=== PATIENT | female | born 1940 | race Caucasian/White ===

== ENCOUNTER 2017-11-21 08:46 | Outpatient (CLI) | payer MEDICARE | END 2017-11-21 08:47 | disposition home or self-care (01) | LOC: BICRAD 08:46 | PROVIDERS: ATTEND Family Medicine | DX: M25.532 Pain in left wrist (principal); M18.12 Unilateral primary osteoarthritis of first carpometacarpal joint, left hand ==

== ENCOUNTER 2023-09-20 07:38 | Day surgery (SDC) | payer MEDICARE ==
[2023-09-19 11:59] VITALS: BMI 39.4
[2023-09-20 09:30] LABS: #Basophils 0.09 10x3/uL (0.0-0.2); %Basophils 0.9 % (0.0-1.0); %Eosinophils 1.9 % (0.0-10.0); %Lymphocytes 18.4 % (21.0-51.0); %Monocytes 7.7 % (0.0-10.0); %Neutrophils 70.7 % (42.0-75.0); Hematocrit 35.7 % (36.0-47.0); Hemoglobin 11.1 g/dL (12.0-16.0); Mean Corpuscular HGB CONC 31.1 g/dL (32.0-36.0); Mean Corpuscular Hemoglobin 27.7 pg (27.0-31.0); Mean Platelet Volume 9.4 fL (7.4-10.4); Platelet Count 435 10x3/uL (130-400); RBC Distribution Width 15.5 % (11.5-14.5); Red Blood Cell (RBC) Count 4.01 mill/uL (4.20-5.40)
[2023-09-20 09:47] LABS: Anion Gap 18 mmol/L (10-20); BUN (Urea Nitrogen) 12 mg/dL (9.8-20.1); Calc. Creatinine Clearance 79 mL/min (70-130); Calcium 9.7 mg/dL (7.8-10.44); Carbon Dioxide 25 mmol/L (23-31); Chloride 98 mmol/L (98-107); Estimated GFR 65; Glucose 160 mg/dL (83-110); Potassium 4.5 mmol/L (3.5-5.1); Sodium 136 mmol/L (136-145)
[2023-09-20 10:08] LABS: INR-International Normal Ratio 1.5; PTT 38.2 sec (22.9-36.1); Prothrombin Time 18.5 sec (12.0-14.7)
[2023-09-20] MEDS ORDERED: PROPOFOL 200 MG/20 ML VIAL ONE (10:27)
== END 2023-09-20 12:00 | disposition home or self-care (01) ==
LOC: SDC 07:38
PROVIDERS: ATTEND Internal Medicine Cardiovascular Disease
PROC: 5A2204Z Restoration of Cardiac Rhythm, Single (ICD-10-PCS; principal; 2023-09-20)
DX: I48.19 Other persistent atrial fibrillation (principal); I48.0 Paroxysmal atrial fibrillation; I11.0 Hypertensive heart disease with heart failure; E11.9 Type 2 diabetes mellitus without complications; I50.32 Chronic diastolic (congestive) heart failure; G47.33 Obstructive sleep apnea (adult) (pediatric); Z71.82 Exercise counseling; Z91.81 History of falling; Z79.01 Long term (current) use of anticoagulants; Z87.891 Personal history of nicotine dependence; Z79.899 Other long term (current) drug therapy; Z90.49 Acquired absence of other specified parts of digestive tract; Z90.89 Acquired absence of other organs; Z98.890 Other specified postprocedural states
CPT/HCPCS: 80048; 85025; 85610; 85730; 92960; 93005; 93010; J2704